=== PATIENT | male | born 2005 | race Caucasian/White ===

== ENCOUNTER 2023-05-10 17:03 | Emergency (ER) | payer OTHER ==
[~2023-05-10] VITALS: Ht 190.5 cm; Wt 86.4 kg
[~2023-05-10 17:03] MED LIST: NO MEDS; NOCURR
[2023-05-10 17:08] VITALS: TEMP 98.6
[2023-05-10] MEDS ORDERED: MethylPREDNISolone SOD SUCC 125 MG/2 ML VIAL IVP ONE (17:45)
[2023-05-10] MEDS ORDERED: DiphenhydrAMINE HCL 50 MG/ML VIAL IVP ONE (17:45)
[2023-05-10 18:19] VITALS: BP 148/72; PULSE 58; RESP 18
[2023-05-10] MEDS ORDERED: DIPH50CA37 PO (18:22)
== END 2023-05-10 18:56 | disposition home or self-care (01) ==
LOC: EMS 17:04
DX: T78.40XA Allergy, unspecified, initial encounter (principal); X58.XXXA Exposure to other specified factors, initial encounter
CPT/HCPCS: 99284; 96374; 96375; J1200; J2930

== ENCOUNTER 2024-02-04 18:21 | Emergency (ER) | payer OTHER ==
[~2024-02-04] VITALS: Ht 188 cm; Wt 86.4 kg
[~2024-02-04 18:21] MED LIST changes: +DIPH50CA37 PO; -NO MEDS; -NOCURR
[2024-02-04 18:27] VITALS: BP 132/75; PULSE 72; RESP 18; TEMP 98.3
[2024-02-04] MEDS ORDERED: BACITRACIN 0.9 GM PACKET OINTMENT TP ONE (20:24)
[2024-02-04] MEDS: BACITRACIN 28 GM OINTMENT TP ONE (20:26)
== END 2024-02-04 20:30 | disposition home or self-care (01) ==
LOC: EMS 20:28
DX: S80.811A Abrasion, right lower leg, initial encounter (principal); W19.XXXA Unspecified fall, initial encounter; Y93.89 Activity, other specified; Y92.89 Other specified places as the place of occurrence of the external cause; Y99.8 Other external cause status
CPT/HCPCS: 99282; Z7502; Z7610